=== PATIENT | female | born 1985 | race American Indian/Alaskan Native ===

== ENCOUNTER 2019-03-30 10:25 | Outpatient (CLI) | payer OTHER, MEDICAID ==
[2019-03-30 12:10] VITALS: BP 98/54
[2019-03-30 13:05] LABS: Bacteria,Urine 1+ /HPF (Negative); Bilirubin,Urine NEG (Negative); Blood,Urine NEG (Negative); Color,Urine Yellow (Yellow); Mucus,Urine FEW /HPF; Protein,Urine <15 mg/dL mg/dL (Negative); Urobilinogen,Urine < 2.0 mg/dL (<2.0)
[2019-03-30 13:10] LABS: Amphetamine Screen,Urine PRESUMPTIVE NEGATIVE; Benzodiazepines Screen,Urine PRESUMPTIVE NEGATIVE; Cannabinoid Screen,Urine PRESUMPTIVE NEGATIVE; Cocaine Screen,Urine PRESUMPTIVE NEGATIVE; Methadone Screen,Urine PRESUMPTIVE NEGATIVE; Opiate Screen,Urine PRESUMPTIVE NEGATIVE; WBC,Urine < 1.0 /HPF (0.0-6.0)
[2019-03-30] MEDS ORDERED: LACTATED RINGERS 500 ML IV ONE (13:13)
--- NOTE | 2019-03-30 14:34 | Ultrasound Report ---
OB sonogram: History: Rule out abruption. Findings: There is single intrauterine gestation with cephalic with cord presentation noted. Normal amniotic fluid. Placenta is anterior and grade 0. heart rate 147 per minute. Average gestational age 20 weeks and 3 days. No separation of placenta. Impression: Single viable intrauterine gestation.
[2019-03-30] MEDS ORDERED: TYLENOL PO ONE (16:26)
== END 2019-03-30 16:53 | disposition home or self-care (01) ==
LOC: TRG 10:25 → LD 10:27 → TRG 11:07 → LD 11:41 → TRG 16:53
PROVIDERS: ATTEND Obstetrics & Gynecology
DX: O26.892 Other specified pregnancy related conditions, second trimester (principal); M54.9 Dorsalgia, unspecified; M79.652 Pain in left thigh; M79.651 Pain in right thigh; V89.2XXA Person injured in unspecified motor-vehicle accident, traffic, initial encounter; Z3A.20 20 weeks gestation of pregnancy; Y93.89 Activity, other specified; Y92.89 Other specified places as the place of occurrence of the external cause; Y99.8 Other external cause status
CPT/HCPCS: 76815; 80307; 81001; 96360; J7120